=== PATIENT | male | born 1955 | race Two or more races ===

== ENCOUNTER 2018-10-31 11:35 | Emergency (ER) | payer MEDICAID ==
[~2018-10-31] VITALS: Ht 162.6 cm; Wt 81.0 kg
[2018-10-31] MEDS ORDERED: bacitracin 15gm ointment TP ONE (12:50)
[2018-10-31] MEDS ORDERED: TETanus/Pertussis (Acell)/Diphther VAC/PF (Tdap-Adult) 0.5ml syringe IM ONE (12:50)
[2018-10-31] MEDS ORDERED: LIDOcaine 1% w/EPI 1:100,000 30ml vial (MDV) ONE (13:00)
[2018-10-31 13:26] VITALS: BP 140/85
== END 2018-10-31 13:59 | disposition home or self-care (01) ==
LOC: ER 11:36
DX: S61.412A Laceration without foreign body of left hand, initial encounter (principal); W26.0XXA Contact with knife, initial encounter; Y93.89 Activity, other specified; Y92.89 Other specified places as the place of occurrence of the external cause; Y99.8 Other external cause status
CPT/HCPCS: 12002; 90471; 99283

== ENCOUNTER 2018-11-13 10:39 | Emergency (ER) | payer MEDICAID ==
[~2018-11-13] VITALS: Ht 162.6 cm; Wt 84.3 kg
[2018-11-13 10:48] VITALS: BP 99/69
--- NOTE | 2018-11-13 10:59 | NUR ---
LEFT HAND X 3 STITCHES WITH SOME REDNESS AND C/O PAIN DUE TO TIGHTNESS 07/02
--- NOTE | 2018-11-13 12:39 | NUR ---
3 sutures removed for left hand per Shaneka PRATT, pt yokasta well
== END 2018-11-13 12:40 | disposition home or self-care (01) ==
LOC: ER 10:39
DX: S61.412D Laceration without foreign body of left hand, subsequent encounter (principal); X58.XXXD Exposure to other specified factors, subsequent encounter
CPT/HCPCS: 99281

== ENCOUNTER 2019-08-24 06:44 | Day surgery (SDC) | payer MEDICARE, BC ==
[~2019-08-24] VITALS: Ht 162.6 cm; Wt 88.0 kg
[2019-08-24] VITALS (21 sets, daily range): BP systolic 91–121; BP diastolic 52–83
[2019-08-24] MEDS ORDERED: diphenhydrAMINE 25mg capsule PO PRN (07:05)
[2019-08-24] MEDS ORDERED: LORazepam 0.5 MG tablet PO PRN (07:05)
[2019-08-24] MEDS ORDERED: LIDOcaine/PRILOcaine 5gm cream TP ONE (07:05)
[2019-08-24] MEDS ORDERED: normal saline 1,000 ML IV SCH (07:05)
[2019-08-24] MEDS ORDERED: PRAV40TA3 PO (07:23)
[2019-08-24] MEDS ORDERED: LISI40TA4 PO (07:28)
[2019-08-24] MEDS ORDERED: FURO40TA4 PO (07:28)
[2019-08-24] MEDS ORDERED: FURO-150 PO (07:29)
[2019-08-24 07:31] LABS: BASOPHILS % (AUTO) 0.2 % (0-1); EOSINOPHILS # (AUTO) 0.1 X10'3 (0-0.9); EOSINOPHILS % (AUTO) 0.7 % (0-6); HEMATOCRIT 46.8 % (42.0-52.0); HEMOGLOBIN 15.1 g/dl (14.0-17.9); LYMPHOCYTES % (AUTO) 10.3 % (21-51); MEAN CORPUSCULAR HEMOGLOBIN 28.9 PG (27.0-31.0); MEAN CORPUSCULAR HGB CONC 32.4 g/dL (33.0-36.5); MEAN CORPUSCULAR VOLUME 89.4 FL (78-98); MEAN PLATELET VOLUME 10.5 FL (7.4-10.4); MONOCYTES % (AUTO) 10.3 % (2-12); NEUTROPHILS # (AUTO) 7.5 X10'3 (1.8-7.7); NEUTROPHILS % (AUTO) 78.5 % (42-75); PLATELET COUNT 200 X10'3 (140-440); RED BLOOD COUNT 5.23 X10'6 (4.70-6.10); RED CELL DISTRIBUTION WIDTH 13.7 % (11.5-14.5); WHITE BLOOD COUNT 9.6 X10'3 (4.5-11.0)
[2019-08-24] MEDS ORDERED: ASPI-611 PO (07:31)
[2019-08-24 07:42] LABS: ALBUMIN 3.3 G/DL (3.4-5.0); ANION GAP 5 (8-16); BLOOD UREA NITROGEN 42 MG/DL (7-18); BUN/CREATININE RATIO 20.5 (5.4-32.0); CALCIUM 8.5 MG/DL (8.5-10.1); CHLORIDE 102 MMOL/L (99-107); CREATININE 2.05 MG/DL (0.60-1.10); GLUCOSE 141 MG/DL (70-104); POTASSIUM 5.1 MMOL/L (3.5-5.1); SODIUM 137 MMOL/L (135-145); TOTAL CARBON DIOXIDE 29.6 MMOL/L (24-32); eGFR 33 ML/MIN
[2019-08-24] MEDS ORDERED: heparin 1,000unit/ml 10ml vial 10 ML ONE (08:31)
[2019-08-24] MEDS ORDERED: midazolam 2 mg/2 ml injection ONE (08:31)
[2019-08-24] MEDS ORDERED: verapamil 2.5 mg/ml inj IV ONE (08:31)
[2019-08-24] MEDS ORDERED: iohexol 350MG/ML 100ml bottle IV ONE (08:31)
[2019-08-24] MEDS ORDERED: nitroGLYCERIN-Tridil 50MG/D5W 250 ML IV ONE (08:31)
[2019-08-24] MEDS ORDERED: fentaNYL/PF 50MCG/1 ML 2ML syringe ONE (08:31)
[2019-08-24] MEDS ORDERED: LIDOcaine 1% (10mg/ml)w/preservative injection 20ml MDV ONE (08:31)
[2019-08-24] MEDS ORDERED: HYDROcodone/acetaminophen 5mg/325mg tablet PO PRN (09:50)
[2019-08-24] MEDS ORDERED: normal saline 1000ml 1,000 ML IV SCH (09:50)
[2019-08-24] MEDS ORDERED: ondansetron/PF 4mg/2ml inj IV PRN (09:50)
[2019-08-24] MEDS ORDERED: OXAZEpam 15mg capsule PO PRN (09:50)
[2019-08-24] MEDS ORDERED: HYDROcodone/acetaminophen 10/325mg tab PO PRN (09:50)
[2019-08-24] MEDS ORDERED: nitroGLYCERIN 0.4mg SUBLingual tab SL PRN (09:50)
[2019-08-24] MEDS ORDERED: proCHLORperazine 10 MG/2 ml inj IV PRN (09:50)
--- NOTE | 2019-08-24 14:30 | NUR ---
Called Dr tellez to discuss Pt inability to fully arouse and maintain 02 sat >87% on RA- lungs are comparable to baseline which was mildly diminished throughout -he stated that it was likely the pre meds and to just give it time- 1630-Pt still unable to fully arouse-very sedated and unable to maintain sats w/out supplemental oxygen-will continue to monitor Addendum: 08/24/19 at 1634 by Chloe Vogel RN Amended: Links added.
--- NOTE | 2019-08-24 17:00 | NUR ---
Spoke w/Dr Maxwell again regarding no changes to pt status-unable to maintain sats > 90% on RA and difficult to arouse-rec'd orders for flumazenil Addendum: 08/24/19 at 1742 by Chloe Vogel RN Amended: Links added.
[2019-08-24] MEDS ORDERED: flumazenil 0.1 mg/ml inj. IV ONE (17:05)
== END 2019-08-24 19:35 | disposition home or self-care (01) ==
LOC: MED 3N 06:44 → U 06:44
PROVIDERS: ATTEND Internal Medicine Interventional Cardiology
DX: R94.30 Abnormal result of cardiovascular function study, unspecified (principal); I42.9 Cardiomyopathy, unspecified; E11.22 Type 2 diabetes mellitus with diabetic chronic kidney disease; I12.9 Hypertensive chronic kidney disease with stage 1 through stage 4 chronic kidney disease, or unspecified chronic kidney disease; N18.3 Chronic kidney disease, stage 3 (moderate); I45.10 Unspecified right bundle-branch block; E78.5 Hyperlipidemia, unspecified; K21.9 Gastro-esophageal reflux disease without esophagitis; E66.9 Obesity, unspecified; Z88.3 Allergy status to other anti-infective agents; Z82.49 Family history of ischemic heart disease and other diseases of the circulatory system; Z68.31 Body mass index [BMI] 31.0-31.9, adult; Z79.899 Other long term (current) drug therapy
CPT/HCPCS: 80048; 82948; 85025; 85610; 93005; 93458; C1769; C1894; J1644; J2001; J2250; J3010; J7030; Q0163; Q9967; A5120; J3490